=== PATIENT | male | born 1950 | race Caucasian/White ===

== ENCOUNTER 2017-03-08 03:13 | Inpatient (IN) | payer MEDICARE ==
[~2017-03-08] VITALS: Ht 170.2 cm; Wt 64.4 kg
[2017-03-08 03:35] VITALS: BP 139/65; PULSE 58; RESP 16; TEMP 98.6; O2SAT 100
[2017-03-08 04:54] LABS: AUTOMATED NEUTROPHIL # 3.2 TH/MM3 (1.8-7.7); BASOPHIL % 0.5 % (0.0-2.0); EOSINOPHIL # 0.2 TH/MM3 (0-0.4); EOSINOPHIL % 3.6 % (0.0-4.0); HEMATOCRIT 38.5 % (39.0-51.0); HEMOGLOBIN 13.3 GM/DL (13.0-17.0); LYMPH % 20.4 % (9.0-44.0); MEAN CORPUSCULAR HEMOGLOBIN 31.4 PG (27.0-34.0); MEAN CORPUSCULAR HGB CONC 34.5 % (32.0-36.0); MEAN PLATELET VOLUME 8.4 FL (7.0-11.0); MONO % 9.5 % (0.0-8.0); MONOCYTE # 0.5 TH/MM3 (0-0.9); PLATELET COUNT 149 TH/MM3 (150-450); RED BLOOD COUNT 4.23 MIL/MM3 (4.50-5.90); RED CELL DISTRIBUTION WIDTH 13.2 % (11.6-17.2); WHITE BLOOD COUNT 4.9 TH/MM3 (4.0-11.0)
--- NOTE | 2017-03-08 05:10 | PD ---
HPI Chief Complaint: Altered Mental Status Time Seen by Provider: 03:51 Travel History International Travel<30 days: No Contact w/Intl Traveler<30days: No Traveled to known affect area: No History of Present Illness HPI Is a 66-year-old man with Parkinson's disease and psychosis, eloped from his house for the second time in 24 hours requiring please bring him to the hospital again. He was sedated in route with EMS. Family describes rapid downhill course of progressive worsening psychosis and dementia symptoms. Was seen at the ER last night in [place]. No evidence of trauma. Family declined admission at that point. Patient had worsening delusions and hallucinations. History Past Medical History Narrative Medical Parkinson's disease with psychosis Tetanus Vaccination: < 5 Years Influenza Vaccination: Yes Social History Alcohol Use: Yes Tobacco Use: Yes Review of Systems Except as stated in HPI: all other systems reviewed are Neg Physical Exam Narrative GENERAL: 66-year-old man, sedated SKIN: Focused skin assessment warm/dry. HEAD: Atraumatic. Normocephalic. EYES: Pupils equal and round. No scleral icterus. No injection or drainage. ENT: No nasal bleeding or discharge. Mucous membranes pink and moist. NECK: Trachea midline. No JVD. CARDIOVASCULAR: Regular rate and rhythm. No murmur appreciated. RESPIRATORY: No accessory muscle use. Clear to auscultation. Breath sounds equal bilaterally. GASTROINTESTINAL: Abdomen soft, non-tender, nondistended. Hepatic and splenic margins not palpable. MUSCULOSKELETAL: No obvious deformities. No clubbing. No cyanosis. No edema. NEUROLOGICAL: Sedated, minimal response to stimulus. PSYCHIATRIC: Unable to assess. Data Data Last Documented VS Vital Signs Date Time Temp Pulse Resp B/P (MAP) Pulse Ox O2 Delivery O2 Flow Rate FiO2 03/08/17 03:35 98.6 58 16 139/65 (89) 100 Room Air Orders Orders Complete Blood Count With Diff (03/08/17 04:25) Comprehensive Metabolic Panel (03/08/17 04:25) Psych Screen (03/08/17 04:25) Drug Screen, Random Urine (03/08/17 04:25) Labs Laboratory Tests Test 03/08/17 04:30 White Blood Count 4.9 TH/MM3 Red Blood Count 4.23 MIL/MM3 Hemoglobin 13.3 GM/DL Hematocrit 38.5 % Mean Corpuscular Volume 91.0 FL Mean Corpuscular Hemoglobin 31.4 PG Mean Corpuscular Hemoglobin Concent 34.5 % Red Cell Distribution Width 13.2 % Platelet Count 149 TH/MM3 Mean Platelet Volume 8.4 FL Neutrophils (%) (Auto) 66.0 % Lymphocytes (%) (Auto) 20.4 % Monocytes (%) (Auto) 9.5 % Eosinophils (%) (Auto) 3.6 % Basophils (%) (Auto) 0.5 % Neutrophils # (Auto) 3.2 TH/MM3 Lymphocytes # (Auto) 1.0 TH/MM3 Monocytes # (Auto) 0.5 TH/MM3 Eosinophils # (Auto) 0.2 TH/MM3 Basophils # (Auto) 0.0 TH/MM3 CBC Comment DIFF FINAL Differential Comment MDM Medical Decision Making Medical Screen Exam Complete: Yes Emergency Medical Condition: Yes Medical Record Reviewed: Yes Interpretation(s) CBC is unremarkable. Differential Diagnosis Psychosis, delirium, adverse effect to medication, other Narrative Course Medical decision making INITIAL: This a 66-year-old man, brought in by family with psychotic symptoms related to Parkinson's disease. Second episode of psychotic symptoms involving police evaluation for aggressive threatening behavior, confusion, and is house. Including CT head, x-rays of the shoulders, labs are all unremarkable. Patient would likely benefit from evaluation in med psych for behavior control. He is only on medications for his Parkinson's disease right now. Medication titration difficult due to medication effects and drug interactions. Patient may need placement in a locked facility. Diagnosis Primary Impression: Psychosis due to Parkinson's disease Asher Stanley MD Mar 08, 2017 05:10
[2017-03-08 05:17] LABS: ALKALINE PHOSPHATASE 69 U/L (45-117); TOTAL BILIRUBIN ADULT 0.7 MG/DL (0.2-1.0); TOTAL PROTEIN 6.8 GM/DL (6.4-8.2)
[2017-03-08 05:19] LABS: ALT (GPT) 13 U/L (12-78); AST (GOT) 23 U/L (15-37); BICARBONATE 27.7 MEQ/L (21.0-32.0); BLOOD UREA NITROGEN 19 MG/DL (7-18); CALCIUM 8.8 MG/DL (8.5-10.1); CHLORIDE 109 MEQ/L (98-107); CREATININE 0.89 MG/DL (0.60-1.30); GLOMERULAR FILTRATION RATE 85 ML/MIN (>89); GLUCOSE,RANDOM 90 MG/DL (74-106); SODIUM (NA) 142 MEQ/L (136-145)
[2017-03-08] MEDS ORDERED: CARBIDOPA/LEVODOPA 25 MG/100 MG TAB PO SCH ×3 (07:15→18:00)
--- NOTE | 2017-03-08 12:07 | HHI.HP ---
Provisional Diagnosis Admission Date [place] I. 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 Express and informed consent means consent voluntarily given in writing, by a competent person, after sufficient explanation and disclosure of the subject matter involved to enable the person to make a knowing and willful decision without any element of force, fraud, deceit, duress, or other form of constraint or coercion. This person is 18 years of age or older, is not now known to be incompetent to consent to treatment with a guardian advocate, and does not have a health care surrogate or proxy currently making medical treatment decisions. I have found this person to be one of the following: [] Competent to provide express and informed consent, as defined above, for voluntary admission to this facility and is competent to provide express and informed consent for treatment. He/she has the consistent capacity to make well reasoned, willful, and knowing decisions concerning his or her medical or mental health treatment. The person fully and consistently understands the purpose of the admission for examination/placement and is fully capable of personally exercising all rights assured under [place] Incompetent to provide express and informed consent to voluntary admission , and this is incompetent to provide express and informed consent to treatment. The person must be transferred to involuntary status and a petition for a guardian advocate filed with the Circuit Court. [] Refusing to provide express and informed consent to voluntary admission but is competent to provide express and informed consent for treatment. The person must be discharged or transferred to involuntary status. Form shall be completed within 24 hours of a person's arrival at the receiving facility and filed in the clinical record of each person: 1. Admitted on a voluntary basis 2. Permitted to provide express and informed consent to his/her own treatment 3. Allowed to transfer from involuntary to voluntary status 4. Prior to permitting a person to consent to his or her own treatment after having been previously found incompetent to consent to treatment. History of Present Illness Capacity: Lacks Capacity HPI Patient is a 66-year-old white male initially brought to [facility] history of increased [id number] behaviors anger and irritability aggressiveness towards his . It appears his meds are per the police the hospital twice and sent home now he has been [place] acted. Patient seen screened in the facility then transported here under the [place] act. Patient has a history of Parkinson's disease that is progressed fairly severely. While there is also increased psychotic features with this irritability decreased in his short-term memory or recognition wandering and getting lost. For recently getting more aggressive with his also. Patient seen in either pod with his and neighbor along with RN Robel. Patient sedated due to his receiving when necessary of Ativan in the ambulance on the way over here. is concerned about any interactions with various drugs relating to treat the parkinsonism and also then retracted into behaviors including nuplazid. I states there is no previous history of mental illness, no history of alcohol related issues or drug related issues. 3 adult children. Patient works for [employer] in the past. She denies any past physical or sexual abuse. At this time the patient does meet criteria for acute inpatient psychiatric hospitalization under the [place] act I'll do first opinion request second opinion I feel he does not have capacity make appropriate decisions thus I'll ask for healthcare surrogate and guardian advocate. Will also have neurology consult with us as well as hospitalist. I for Abby to be determined with the CODE STATUS will be on this gentleman lives states that he may also have some issues with sleep apnea. Patient initially was sleeping when the discussion occurred with his . Patient was arousable to drowsy did recognize with some encouragement his he knew he was in the hospital but he thought it was [place]. Renewed tomorrow was crispness and was 2017 Review of Systems ROS Limitations: Altered Mental Status Constitutional: DENIES: Diaphoretic episodes, Fatigue, Fever, Weight gain, Weight loss, Chills, Dizziness, Change in appetite, Night Sweats Endocrine: DENIES: Heat/cold intolerance, Polydipsia, Polyuria, Polyphagia Eyes: DENIES: Blurred vision, Diplopia, Eye inflammation, Eye pain, Vision loss , Photosensitivity, Double Vision Ears, nose, mouth, throat: DENIES: Tinnitus, Hearing loss, Vertigo, Nasal discharge, Oral lesions, Throat pain, Hoarseness, Ear Pain, Running Nose, Epistaxis, Sinus Pain, Toothache, Odynophagia Respiratory: DENIES: Apneas, Cough, Snoring, Wheezing, Hemoptysis, Sputum production, Shortness of breath Cardiovascular: DENIES: Chest pain, Palpitations, Syncope, Dyspnea on Exertion , PND, Lower Extremity Edema, Orthopnea, Claudication Gastrointestinal: DENIES: Abdominal pain, Black stools, Bloody stools, Constipation, Diarrhea, Nausea, Vomiting, Difficulty Swallowing, Anorexia Genitourinary: DENIES: Sexual dysfunction, Urinary frequency, Urinary incontinence, Urgency, Hematuria, Dysuria, Nocturia, Penile Discharge, Testicular Pain, Testicular Swelling Musculoskeletal: DENIES: Joint pain, Muscle aches, Stiffness, Joint Swelling, Back pain, Neck pain Integumentary: DENIES: Abnormal pigmentation, Nail changes, Pruritus, Rash Hematologic/lymphatic: DENIES: Bruising, Lymphadenopathy Immunologic/allergic: DENIES: Eczema, Urticaria Neurologic: COMPLAINS OF: Abnormal gait, DENIES: Headache, Localized weakness, Paresthesias, Seizures, Speech Problems, Tremor, Poor Balance Psychiatric: COMPLAINS OF: Confusion, Mood changes, Hallucinations, Agitation Past Psych History Psychological trauma history No history of abuse Violence risk - others (6 mos) Patient becoming more and more violent with at home Violence risk - self (6 mos) Denies Substance Abuse History Drugs/Alcohol past 12 months None known Past Family Social History Coded Allergies: clonazepam (Verified Allergy, Intermediate, 03/08/17) codeine (Verified Allergy, Intermediate, 03/08/17) eszopiclone (Verified Allergy, Intermediate, 03/08/17) quetiapine (Verified Allergy, Intermediate, 03/08/17) Current Medications Medications (Trade) Dose Ordered Sig/Marta Route Start Time Stop Time Status Last Admin (Sinemet 25-100 Mg) 1 tab Q8H PO 03/08/17 11:00 03/08/17 10:51 Family Psych History There is some history of mental health issues and family origin Social History Patient lives with his Patient's Strengths (min. 2) Patient verbal intellect is health care has supportive family Physical Exam Patient medically cleared through ED at this time patient dozing on his cot on 8 pod Vital Signs Vital Signs Date Time Temp Pulse Resp B/P (MAP) Pulse Ox O2 Delivery O2 Flow Rate FiO2 03/08/17 07:20 53 16 99 Room Air 03/08/17 03:35 98.6 139/65 (89) Lab Results Test 03/08/17 04:30 03/08/17 07:14 White Blood Count 4.9 TH/MM3 Red Blood Count 4.23 MIL/MM3 Hemoglobin 13.3 GM/DL Hematocrit 38.5 % Mean Corpuscular Volume 91.0 FL Mean Corpuscular Hemoglobin 31.4 PG Mean Corpuscular Hemoglobin Concent 34.5 % Red Cell Distribution Width 13.2 % Platelet Count 149 TH/MM3 Mean Platelet Volume 8.4 FL Neutrophils (%) (Auto) 66.0 % Lymphocytes (%) (Auto) 20.4 % Monocytes (%) (Auto) 9.5 % Eosinophils (%) (Auto) 3.6 % Basophils (%) (Auto) 0.5 % Neutrophils # (Auto) 3.2 TH/MM3 Lymphocytes # (Auto) 1.0 TH/MM3 Monocytes # (Auto) 0.5 TH/MM3 Eosinophils # (Auto) 0.2 TH/MM3 Basophils # (Auto) 0.0 TH/MM3 CBC Comment DIFF FINAL Differential Comment Blood Urea Nitrogen 19 MG/DL Creatinine 0.89 MG/DL Random Glucose 90 MG/DL Total Protein 6.8 GM/DL Albumin 4.0 GM/DL Calcium Level 8.8 MG/DL Alkaline Phosphatase 69 U/L Aspartate Amino Transf (AST/SGOT) 23 U/L Alanine Aminotransferase (ALT/SGPT) 13 U/L Total Bilirubin 0.7 MG/DL Sodium Level 142 MEQ/L Potassium Level 3.8 MEQ/L Chloride Level 109 MEQ/L Carbon Dioxide Level 27.7 MEQ/L Anion Gap 5 MEQ/L Estimat Glomerular Filtration Rate 85 ML/MIN Urine Opiates Screen NEG Urine Barbiturates Screen NEG Urine Amphetamines Screen NEG Urine Benzodiazepines Screen NEG Urine Cocaine Screen NEG Urine Cannabinoids Screen NEG Mental Status Examination Appearance: Appropriate Consciousness: Asleep (arousable to somewhat confused) Orientation: Person, Place Motor Activity: Abnormal gait, Other (patient in bed) Speech: Hesitant, Slow Language: Adequate Fund of Knowledge: Adequate Attention and Concentration: Easily Distracted Memory: Impaired Mood: Sad, Irritable Affect: Other (decreased range and intensity) Thought Process & Associations: Disorganized Thought Content: Other (disorganized) Hallucination Type: None Delusion Type: Paranoid (mild) Suicidal Ideation: No Suicidal Plan: No Suicidal Intention: No Homicidal Ideation: No Homicidal Plan: No Homicidal Intention: No Insight: Poor Judgment: Poor Assessment & Plan Problem List: (1) Dementia due to Parkinson's disease with behavioral disturbance ICD Codes: G20 - Parkinson's disease; F02.81 - Dementia in other diseases classified elsewhere with behavioral disturbance Assessment & Plan Estimated LOS: days this time patient meets criteria for involuntary psychiatric consultation the [place] act I'll do first opinion request second opinion. I feel he does not have capacity at this time also ask for help who surrogate and guardian advocate. Patient's is willing to be health care surrogate. Will continue medications per med reconciliation Discharge Planning This patient be determined with input from patient's and children and observing patient's response to treatment Request HC Surrog/Guard Advoc?: Yes Morro Mauro MD Mar 08, 2017 12:07
[2017-03-08] MEDS ORDERED: LIPI20TA PO (12:12)
[2017-03-08] MEDS ORDERED: ASPI-516 CHEW (12:14)
[2017-03-08] MEDS ORDERED: THER50TA3 (12:14)
[2017-03-08] MEDS ORDERED: SINE25TA PO (12:14)
[2017-03-08] MEDS ORDERED: [UNRECOGNIZED DRUG - CODE] PO (12:14)
[2017-03-08 13:56] VITALS: BP 118/55; PULSE 58; RESP 16; TEMP 97.5; O2SAT 96
--- NOTE | 2017-03-08 15:00 | PD.CONS ---
[facility] Requested By DR HERR Reason for Consult MEDICAL MANAGEMENT Primary Care Physician Unknown Diagnoses: (1) Parkinson's disease (2) CAD (coronary artery disease) (3) Hyperlipidemia (4) Dementia due to Parkinson's disease with behavioral disturbance (5) Psychosis due to Parkinson's disease History of Present Illness Patient is a 66-year-old gentleman transferred from [facility] for psychiatric evaluation. We have been asked to consult regarding medical management. Patient is known to have a history of Parkinson's disease. That has progressed quickly. With features of dementia and and aggressive behavior. Also has a history of coronary artery disease with history of a coronary artery bypass graft one vessel for the LAD/ maker vessel. Patient also has hyperlipidemia. We've been asked to help regarding medical management and any other issues that arise. Review of Systems Constitutional: DENIES: Diaphoretic episodes, Fatigue, Fever, Weight gain, Weight loss, Chills Endocrine: DENIES: Heat/cold intolerance, Polydipsia, Polyuria Eyes: DENIES: Blurred vision, Diplopia, Eye inflammation, Eye pain, Vision loss Ears, nose, mouth, throat: DENIES: Tinnitus, Hearing loss, Vertigo, Nasal discharge, Oral lesions Respiratory: DENIES: Apneas, Cough, Snoring, Wheezing Cardiovascular: DENIES: Chest pain, Palpitations, Syncope, Dyspnea on Exertion Gastrointestinal: DENIES: Abdominal pain, Black stools, Bloody stools Genitourinary: DENIES: Sexual dysfunction, Urinary frequency Musculoskeletal: DENIES: Joint pain, Muscle aches, Stiffness Integumentary: DENIES: Abnormal pigmentation, Nail changes Hematologic/lymphatic: DENIES: Bruising, Lymphadenopathy Immunologic/allergic: DENIES: Eczema, Urticaria Neurologic: COMPLAINS OF: Abnormal gait, DENIES: Headache, Localized weakness, Paresthesias, Seizures, Speech Problems Psychiatric: COMPLAINS OF: Anxiety, Confusion, Mood changes, Agitation Except as stated in HPI: all other systems reviewed are Neg Past Family Social History Allergies: Coded Allergies: clonazepam (Verified Allergy, Intermediate, 03/08/17) codeine (Verified Allergy, Intermediate, 03/08/17) eszopiclone (Verified Allergy, Intermediate, 03/08/17) quetiapine (Verified Allergy, Intermediate, 03/08/17) Past Medical History Parkinson's disease Coronary artery disease Hyperlipidemia Dementia Past Surgical History Coronary artery bypass graft one vessel of the " maker vessel Coronary artery disease Tonsillectomy Left knee arthroscopic surgery Reported Medications Reported Meds & Active Scripts Active Reported Aspirin 81 Mg Chew 81 Mg CHEW DAILY Theragran-M Premier 50+ Caplet (Mv-Mn/FA/Coq10/Lycopene/Lutein) 400 Mcg-250 Mcg- 375 Mcg-250 Mcg Tablet Sinemet (Carbidopa-Levodopa) 25-100 Mg Tab 1 Tab PO Q6HR Nuplazid (Pimavanserin) 17 Mg Tab 34 Mg PO DAILY Lipitor (Atorvastatin Calcium) 20 Mg Tab 20 Mg PO HS Active Ordered Medications Current Medications Carbidopa/Levodopa (Sinemet 25-100 Mg) 1 tab Q8HR PO Last administered on 03/08 07:20; Start 03/08/17 at 07:15; Stop 03/08/17 at 10:29; Status DC Carbidopa/Levodopa (Sinemet 25-100 Mg) 1 tab Q8H PO Last administered on 10:51; Start 03/08/17 at 11:00 Family History Mother in her 70s from a stroke Father at 44 with an [place] Social History Denies any tobacco or alcohol or illicits had previously had some social alcohol only Physical Exam Vital Signs Vital Signs Date Time Temp Pulse Resp B/P (MAP) Pulse Ox O2 Delivery O2 Flow Rate FiO2 03/08/17 13:56 97.5 58 16 118/55 (76) 96 03/08/17 13:13 03/08/17 07:20 53 16 99 Room Air 03/08/17 03:35 98.6 58 16 139/65 (89) 100 Room Air Physical Exam GENERAL: This is a well-nourished, well-developed patient, in no apparent distress. SKIN: No rashes, ecchymoses or lesions. Cool and dry. HEAD: Atraumatic. Normocephalic. No temporal or scalp tenderness. EYES: Pupils equal round and reactive. Extraocular motions intact. No scleral icterus. No injection or drainage. ENT: Nose without bleeding, purulent drainage or septal hematoma. Throat without erythema, tonsillar hypertrophy or exudate. Uvula midline. Airway patent. Tongue is midline NECK: Trachea midline. No JVD or lymphadenopathy. Supple, nontender, no meningeal signs. CARDIOVASCULAR: Regular rate and rhythm without murmurs, gallops, or rubs. RESPIRATORY: Clear to auscultation. Breath sounds equal bilaterally. No wheezes , rales, or rhonchi. GASTROINTESTINAL: Abdomen soft, non-tender, nondistended. No hepato-splenomegaly , or palpable masses. No guarding. MUSCULOSKELETAL: Extremities without clubbing, cyanosis, or edema. No joint tenderness, effusion, or edema noted. No calf tenderness. Negative Homans sign bilaterally. NEUROLOGICAL: Awake and alert. Cranial nerves II through XII intact. Motor and sensory grossly within normal limits. Five out of 5 muscle strength in all muscle groups. Normal speech. InSight and judgment is limited Mood and behavior somewhat inappropriate Laboratory Laboratory Tests Test 03/08/17 04:30 03/08/17 07:14 White Blood Count 4.9 Red Blood Count 4.23 Hemoglobin 13.3 Hematocrit 38.5 Mean Corpuscular Volume 91.0 Mean Corpuscular Hemoglobin 31.4 Mean Corpuscular Hemoglobin Concent 34.5 Red Cell Distribution Width 13.2 Platelet Count 149 Mean Platelet Volume 8.4 Neutrophils (%) (Auto) 66.0 Lymphocytes (%) (Auto) 20.4 Monocytes (%) (Auto) 9.5 Eosinophils (%) (Auto) 3.6 Basophils (%) (Auto) 0.5 Neutrophils # (Auto) 3.2 Lymphocytes # (Auto) 1.0 Monocytes # (Auto) 0.5 Eosinophils # (Auto) 0.2 Basophils # (Auto) 0.0 CBC Comment DIFF FINAL Differential Comment Blood Urea Nitrogen 19 Creatinine 0.89 Random Glucose 90 Total Protein 6.8 Albumin 4.0 Calcium Level 8.8 Alkaline Phosphatase 69 Aspartate Amino Transf (AST/SGOT) 23 Alanine Aminotransferase (ALT/SGPT) 13 Total Bilirubin 0.7 Sodium Level 142 Potassium Level 3.8 Chloride Level 109 Carbon Dioxide Level 27.7 Anion Gap 5 Estimat Glomerular Filtration Rate 85 Urine Opiates Screen NEG Urine Barbiturates Screen NEG Urine Amphetamines Screen NEG Urine Benzodiazepines Screen NEG Urine Cocaine Screen NEG Urine Cannabinoids Screen NEG Result Diagram: 03/08/1742903/08/17429 Assessment and Plan Problem List: (1) Psychosis due to Parkinson's disease ICD Code: G20 - Parkinson's disease Status: Acute (2) Dementia due to Parkinson's disease with behavioral disturbance ICD Code: G20 - Parkinson's disease; F02.81 - Dementia in other diseases classified elsewhere with behavioral disturbance (3) CAD (coronary artery disease) ICD Code: I25.10 - Atherosclerotic heart disease of [place] coronary artery without angina pectoris (4) Hyperlipidemia ICD Code: E78.5 - Hyperlipidemia, unspecified (5) Parkinson's disease ICD Code: G20 - Parkinson's disease Assessment and Plan Psychosis due to Parkinson's disease and dementia. We'll defer to psychiatry Parkinson's disease resume home Sinemet. Psychiatry has consulted neurology Coronary artery disease with history of coronary artery bypass graft one vessel of the maker vessel Hyperlipidemia on Lipitor 20 mg History of tonsillectomy History of left knee arthroscopic surgery We'll get lab studies TSH free T4 hemoglobin A1c mag and phosphorus Code Status Full code Discussed Condition With Discussed with RN and patient Peña Alvarez DO Mar 08, 2017 15:00
[2017-03-08] MEDS ORDERED: hydrOXYzine HCL 50 MG TAB PO PRN (17:15)
[2017-03-08 17:26] VITALS: BP 125/69; PULSE 69; RESP 18; TEMP 97.4; O2SAT 96
[2017-03-08 18:49] LABS: FREE T4 1.26 NG/DL (0.76-1.46)
[2017-03-08 18:54] LABS: MAGNESIUM 2.1 MG/DL (1.5-2.5); PHOSPHORUS 2.9 MG/DL (2.5-4.9)
[2017-03-08] MEDS: CARBIDOPA/LEVODOPA 25 MG/100 MG TAB PO SCH (19:20)
[2017-03-09 06:17] VITALS: BP 125/73; PULSE 64; RESP 20; TEMP 98; O2SAT 98
[2017-03-09] MEDS: CARBIDOPA/LEVODOPA 25 MG/100 MG TAB PO SCH ×4 (07:07→18:51)
[2017-03-09 07:52] LABS: BILIRUBIN, URINE NEG (NEG); BLOOD, URINE NEG (NEG); GLUCOSE,URINE NEG (NEG); KETONE, URINE NEG (NEG); MUCUS URINE FEW /lpf (OCC); NITRITE,URINE NEG (NEG); URINE COLOR YELLOW (YELLW/STRAW); URINE LEUKOCYTE ESTERASE NEG (NEG)
[2017-03-09] MEDS ORDERED: LORazepam 2 MG/ML VIAL IM PRN (10:00)
[2017-03-09] MEDS ORDERED: LORazepam 1 MG TAB PO PRN (10:00)
[2017-03-09] MEDS: ASPIRIN 81 MG CHEW TAB CHEW SCH (11:04)
--- NOTE | 2017-03-09 11:06 | PD.CONS ---
History of Present Illness Service Neurology Consult Requested By psych Reason for Consult pd Primary Care Physician Unknown History of Present Illness 66-year-old m admitted to psych [facility] tx'd from [facility]. apparently, eloped from his home and has had progressive deterioration in his pd over the past few weeks. [facility] and is followed by a neurologist in [place] for parkinson' s which was dx'd 8-9 years ago. was recently tried on nuplazid for psychosis. he thinks it may have made it worse. he admits to visual hallucinations, delusions. sleep: +dream enactment behavior with violent vivid dreams suggestive of rem sleep behavior disorder currently, he asks if he can go home. aware of where he is. denies wright/cp/focal weakness. Review of Systems as above and admit hp Past Family Social History Allergies: Coded Allergies: clonazepam (Verified Allergy, Intermediate, 03/08/17) codeine (Verified Allergy, Intermediate, 03/08/17) eszopiclone (Verified Allergy, Intermediate, 03/08/17) quetiapine (Verified Allergy, Intermediate, 03/08/17)] Past Medical History Parkinson's disease Coronary artery disease Hyperlipidemia Past Surgical History Coronary artery bypass graft one vessel of the " maker vessel Coronary artery disease Tonsillectomy Left knee arthroscopic surgery Reported Medications Reported Meds & Active Scripts Active Reported Aspirin 81 Mg Chew 81 Mg CHEW DAILY Theragran-M Premier 50+ Caplet (Mv-Mn/FA/Coq10/Lycopene/Lutein) 400 Mcg-250 Mcg- 375 Mcg-250 Mcg Tablet Sinemet (Carbidopa-Levodopa) 25-100 Mg Tab 1 Tab PO Q6HR Nuplazid (Pimavanserin) 17 Mg Tab 34 Mg PO DAILY Lipitor (Atorvastatin Calcium) 20 Mg Tab 20 Mg PO HS Active Ordered Medications Current Medications Carbidopa/Levodopa (Sinemet 25-100 Mg) 1 tab Q8HR PO Last administered on 03/08 07:20; Start 03/08/17 at 07:15; Stop 03/08/17 at 10:29; Status DC Carbidopa/Levodopa (Sinemet 25-100 Mg) 1 tab Q8H PO Last administered on 10:51; Start 03/08/17 at 11:00 Family History m-stroke f-mi Social History Denies any tobacco or alcohol or illicits , lives with Review of Systems All other ROS: ROS reviewed as documented in chart Past Family Social History Allergies: Coded Allergies: clonazepam (Verified Allergy, Intermediate, 03/08/17) codeine (Verified Allergy, Intermediate, 03/08/17) eszopiclone (Verified Allergy, Intermediate, 03/08/17) quetiapine (Verified Allergy, Intermediate, 03/08/17) Active Ordered Medications Current Medications Medications (Trade) Dose Ordered Sig/Marta Route Start Time Stop Time Status Last Admin (Atarax) 50 mg Q6H PRN PO 03/08/17 17:15 03/08/17 22:30 (Sinemet 25-100 Mg) 1 tab DAILY@0700,1100 PO 03/09/17 07:00 03/09/17 07:07 (Sinemet 25-100 Mg) 1 tab DAILY@1500,1900 PO 03/08/17 19:00 03/08/17 19:20 (Aspirin Chew) 81 mg DAILY CHEW 03/09/17 10:00 (Lipitor) 20 mg HS PO 03/09/17 21:00 (Sinemet 25-100 Mg) 1 tab QID PO 03/09/17 13:00 (Ativan) 1 mg Q6H PRN PO 03/09/17 10:00 (Ativan Inj) 1 mg Q6H PRN IM 03/09/17 10:00 Exam I&O / VS 03/09/17 03/09/17 03/10/17 15:00 23:00 07:00 Intake Total 360 ml Balance 360 ml Intake Oral 360 ml Vital Signs Date Time Temp Pulse Resp B/P (MAP) Pulse Ox O2 Delivery O2 Flow Rate FiO2 03/09/17 06:17 98.0 64 20 125/73 (90) 98 03/08/17 17:26 97.4 69 18 125/69 (87) 96 03/08/17 13:56 97.5 58 16 118/55 (76) 96 03/08/17 13:13 General: Alert and Oriented, No acute distress Eye: EOMI Respiratory: Non-labored respirations Cardiology: Normal rate Musculoskeletal: ROM Neurologic: Alert, Oriented, Normal sensory, CN II-XII intact, Gag reflex normal, Normal DTR's Psychiatric: Cooperative, Appropriate mood & affect, Normal judgement, Non- suicidal Exam Comments alert, ox 2, articulate, sitting up in bed. follows, calm, pleasant, not hallucinating, eomi, face sym, facial hypomimia, dysphonic speech, no tremors, minimal ue rgidity, woo to gravity, gait not assessed 2/2 fall risk. Review/Management Diagnosis/Plan: (1) Lewy body dementia with behavioral disturbance ICD Codes: G31.83 - Dementia with Lewy bodies; F02.81 - Dementia in other diseases classified elsewhere with behavioral disturbance Status: Acute Plan: may have lewy body dementia vs PDD pd appears to be well controlled on current regimen. has insight into his hallucinations. very calm this am. could consider low dose seroquel, however risk of worsening lewy body dementia/ pd. clozaril another choice but would require intense weekly monitoring of cbc will follow no driving (2) Psychosis due to Parkinson's disease ICD Codes: G20 - Parkinson's disease Status: Acute (3) Dementia due to Parkinson's disease with behavioral disturbance ICD Codes: G20 - Parkinson's disease; F02.81 - Dementia in other diseases classified elsewhere with behavioral disturbance Status: Acute (4) REM sleep behavior disorder ICD Codes: G47.52 - REM sleep behavior disorder Status: Chronic (5) Parkinson's disease ICD Codes: G20 - Parkinson's disease Status: Chronic Junior Salas MD Mar 09, 2017 11:06
--- NOTE | 2017-03-09 11:13 | HHI.PYPN ---
Subjective Remarks Patient very anxious and wants to go home. Apparently is unable to care for him. Patient showing signs of Parkinson's dementia. Does not have sufficient treatment for anxiety and this physician started when necessary Ativan. Labs reviewed. Review of Systems ROS Limitations: Clinical Condition Psychiatric: COMPLAINS OF: Anxiety, Confusion Except as stated in HPI: all other systems reviewed are Neg Mental Status Examination Appearance: Appropriate Consciousness: Asleep (arousable to somewhat confused) Orientation: Person, Place Motor Activity: Abnormal gait, Other (patient in bed) Speech: Hesitant, Slow Language: Adequate Fund of Knowledge: Adequate Attention and Concentration: Easily Distracted Memory: Impaired Mood: Sad, Irritable Affect: Other (decreased range and intensity) Thought Process & Associations: Disorganized Thought Content: Other (disorganized) Hallucination Type: None Delusion Type: Paranoid (mild) Suicidal Ideation: No Suicidal Plan: No Suicidal Intention: No Homicidal Ideation: No Homicidal Plan: No Homicidal Intention: No Insight: Poor Judgment: Poor Results Labs Test 03/09/17 00:00 Urine Color YELLOW Urine Turbidity CLEAR Urine pH 6.0 Urine Specific [place] 1.022 Urine Protein NEG mg/dL Urine Glucose (UA) NEG mg/dL Urine Ketones NEG mg/dL Urine Occult Blood NEG Urine Nitrite NEG Urine Bilirubin NEG Urine Urobilinogen 2.0 MG/DL Urine Leukocyte Esterase NEG Urine RBC 2 /hpf Urine WBC LESS THAN 1 /hpf Urine Mucus FEW /lpf Microscopic Urinalysis Comment CULT NOT INDICATED Vitals/IOs Vital Signs Date Time Temp Pulse Resp B/P (MAP) Pulse Ox O2 Delivery O2 Flow Rate FiO2 03/09/17 06:17 98.0 64 20 125/73 (90) 98 03/08/17 07:20 Room Air Intake and Output 03/09/17 03/09/17 03/10/17 08:00 16:00 00:00 Intake Total 840 ml Balance 840 ml Assessment & Plan Problem List: (1) Dementia due to Parkinson's disease with behavioral disturbance ICD Codes: G20 - Parkinson's disease; F02.81 - Dementia in other diseases classified elsewhere with behavioral disturbance Status: Acute Assessment & Plan Estimated LOS: days. Patient continues to demonstrate memory deficits, high anxiety, periods of confusion and reported agitation. He was started on when necessary Ativan by this physician to assess efficacy and tolerability and treatment of anxiety. Labs reviewed. Justification for Cont. Inpt. Patient remains easily confused and agitated with high anxiety. He represents a danger to himself and others. Request HC Surrog/Guard Advoc?: Yes Vu White MD Mar 09, 2017 11:13
[2017-03-09 12:14] LABS: HEMOGLOBIN A1C 5.6 % (4.3-6.0)
[2017-03-09] MEDS ORDERED: CARBIDOPA/LEVODOPA 25 MG/100 MG TAB PO SCH (13:00)
[2017-03-09] MEDS ORDERED: CALCIUM CARBONATE 500 MG CHEWABLE TAB PO PRN (15:00)
[2017-03-09 18:00] VITALS: BP 128/74; PULSE 66; RESP 17; TEMP 97.8; O2SAT 98
[2017-03-09] MEDS: ATORVASTATIN 20 MG TAB PO SCH (20:51)
[2017-03-10 06:25] VITALS: BP 88/61; PULSE 64; RESP 16; TEMP 98.1; O2SAT 98
--- NOTE | 2017-03-10 08:40 | HHI.PR ---
Subjective Remarks delayed note from 03/09 pt seen and examioned c/o heart nurn he usually use prilosec 20 mg bid prn Objective Vitals Vital Signs Date Time Temp Pulse Resp B/P (MAP) Pulse Ox O2 Delivery O2 Flow Rate FiO2 03/10/17 06:25 98.1 64 16 88/61 (70) 98 03/09/17 18:00 97.8 66 17 128/74 (92) 98 I/O 03/09/17 03/09/17 03/09/17 03/10/17 03/10/17 03/10/17 07:00 15:00 23:00 07:00 15:00 23:00 Intake Total 480 ml 1200 ml 480 ml 120 ml 240 ml Balance 480 ml 1200 ml 480 ml 120 ml 240 ml Intake Oral 480 ml 1200 ml 480 ml 120 ml 240 ml # Voids 2 3 2 3 Result Diagram: 03/08/17 04303/08/17 0430 Objective Remarks GENERAL: This is a well-nourished, well-developed patient, in no apparent distress. CARDIOVASCULAR: Regular rate and rhythm without murmurs, gallops, or rubs. RESPIRATORY: Clear to auscultation. Breath sounds equal bilaterally. No wheezes , rales, or rhonchi. GASTROINTESTINAL: Abdomen soft, non-tender, nondistended. Normal active bowel sounds MUSCULOSKELETAL: Extremities without clubbing, cyanosis, or edema. NEURO: Alert & Oriented x4 to person, place, time, situation. Moves all ext x4 A/P Problem List: (1) Psychosis due to Parkinson's disease ICD Code: G20 - Parkinson's disease Status: Acute (2) Dementia due to Parkinson's disease with behavioral disturbance ICD Code: G20 - Parkinson's disease; F02.81 - Dementia in other diseases classified elsewhere with behavioral disturbance Status: Acute (3) CAD (coronary artery disease) ICD Code: I25.10 - Atherosclerotic heart disease of [place] coronary artery without angina pectoris (4) Hyperlipidemia ICD Code: E78.5 - Hyperlipidemia, unspecified (5) Parkinson's disease ICD Code: G20 - Parkinson's disease Status: Chronic Assessment and Plan Psychosis due to Parkinson's disease and dementia. We'll defer to psychiatry Parkinson's disease resume home Sinemet. Psychiatry has consulted neurology Coronary artery disease with history of coronary artery bypass graft one vessel of the maker vessel Hyperlipidemia on Lipitor 20 mg GERD: protonix , thumps , need ff outpt Neena Almanza MD Mar 10, 2017 08:40
[2017-03-10] MEDS: CARBIDOPA/LEVODOPA 25 MG/100 MG TAB PO SCH ×4 (08:58→18:03)
[2017-03-10] MEDS: ASPIRIN 81 MG CHEW TAB CHEW SCH (08:58)
[2017-03-10] MEDS: PANTOPRAZOLE SOD 40 MG DELAYED RELEASE TAB PO SCH (08:58)
--- NOTE | 2017-03-10 09:58 | HHI.PYPN ---
Subjective Remarks Patient seen in [place] with nurse Nick, patient alert fairly well oriented to place time and situation. Did not remember me from our visit 2 days ago. Neurology consult noted and appreciated and agreed with medicine consult noted and agreed with and appreciated. At this time patient is not on his Pneumovax a. He is basically on Sinemet and Ativan as needed. He is calm cooperative and pleasant. It appears to be meeting with his early this afternoon limited to speak with her concerning future care and any future problems they may have it games well Review of Systems Except as stated in HPI: all other systems reviewed are Neg Mental Status Examination Appearance: Appropriate Consciousness: Asleep (arousable to somewhat confused) Orientation: Person, Place Motor Activity: Abnormal gait, Other (patient in bed) Speech: Hesitant, Slow Language: Adequate Fund of Knowledge: Adequate Attention and Concentration: Easily Distracted Memory: Impaired Mood: Sad, Irritable Affect: Other (decreased range and intensity) Thought Process & Associations: Disorganized Thought Content: Other (disorganized) Hallucination Type: None Delusion Type: Paranoid (mild) Suicidal Ideation: No Suicidal Plan: No Suicidal Intention: No Homicidal Ideation: No Homicidal Plan: No Homicidal Intention: No Insight: Poor Judgment: Poor Results Labs Test 03/09/17 12:22 Erythrocyte Sedimentation Rate 1 mm/hr Vitamin B12 Level 552 PG/ML Vitals/IOs Vital Signs Date Time Temp Pulse Resp B/P (MAP) Pulse Ox O2 Delivery O2 Flow Rate FiO2 03/10/17 06:25 98.1 64 16 88/61 (70) 98 03/08/17 07:20 Room Air Intake and Output 03/10/17 03/10/17 03/11/17 08:00 16:00 00:00 Intake Total 360 ml Balance 360 ml Assessment & Plan Problem List: (1) Dementia due to Parkinson's disease with behavioral disturbance ICD Codes: G20 - Parkinson's disease; F02.81 - Dementia in other diseases classified elsewhere with behavioral disturbance Status: Acute Assessment & Plan Estimated LOS: days patient calmer more focused today now denies suicidality homicidality voices or vision. Is coping with the hospitalization. Attempted talk with patient's this afternoon Justification for Cont. Inpt. This time patient may decompensate about placed in an appropriate level of care Discharge Planning To be determined discussed this with patient's Request HC Surrog/Guard Advoc?: Yes Caliendo,Morro E. MD Mar 10, 2017 09:58
--- NOTE | 2017-03-10 13:59 | HHI.PR ---
Subjective Remarks doing well , no heart burn today clear bu medicine to be dc and ff outpt pt understand he need to ff with pcp Objective Vitals Vital Signs Date Time Temp Pulse Resp B/P (MAP) Pulse Ox O2 Delivery O2 Flow Rate FiO2 03/10/17 06:25 98.1 64 16 88/61 (70) 98 03/09/17 18:00 97.8 66 17 128/74 (92) 98 I/O 03/09/17 03/09/17 03/09/17 03/10/17 03/10/17 03/10/17 07:00 15:00 23:00 07:00 15:00 23:00 Intake Total 480 ml 1200 ml 480 ml 120 ml 240 ml Balance 480 ml 1200 ml 480 ml 120 ml 240 ml Intake Oral 480 ml 1200 ml 480 ml 120 ml 240 ml # Voids 2 3 2 3 Result Diagram: 03/08/17 04303/08/17 043 Objective Remarks GENERAL: This is a well-nourished, well-developed patient, in no apparent distress. CARDIOVASCULAR: Regular rate and rhythm without murmurs, gallops, or rubs. RESPIRATORY: Clear to auscultation. Breath sounds equal bilaterally. No wheezes , rales, or rhonchi. GASTROINTESTINAL: Abdomen soft, non-tender, nondistended. Normal active bowel sounds MUSCULOSKELETAL: Extremities without clubbing, cyanosis, or edema. NEURO: Alert & Oriented x4 to person, place, time, situation. Moves all ext x4 A/P Problem List: (1) Psychosis due to Parkinson's disease ICD Code: G20 - Parkinson's disease Status: Acute (2) Dementia due to Parkinson's disease with behavioral disturbance ICD Code: G20 - Parkinson's disease; F02.81 - Dementia in other diseases classified elsewhere with behavioral disturbance Status: Acute (3) CAD (coronary artery disease) ICD Code: I25.10 - Atherosclerotic heart disease of [place] coronary artery without angina pectoris (4) Hyperlipidemia ICD Code: E78.5 - Hyperlipidemia, unspecified (5) Parkinson's disease ICD Code: G20 - Parkinson's disease Status: Chronic Assessment and Plan Psychosis due to Parkinson's disease and dementia. We'll defer to psychiatry Parkinson's disease resume home Sinemet. Psychiatry has consulted neurology Coronary artery disease with history of coronary artery bypass graft one vessel of the maker vessel Hyperlipidemia on Lipitor 20 mg GERD:sx improved , cont protonix , thumps , need ff outpt Neena Almanza MD Mar 10, 2017 13:59
--- NOTE | 2017-03-10 15:17 | PD.TTN ---
Patient Problems 1. Discharge planning 2. Medication compliance 3. Knowledge deficit 4. Lack of coping skills Progress Toward Goals Provider Present: Dr. Luis Mauro Provider Input: 03/10/2017; patient is a new admission and will be assess for medication management and treatment Psychiatric Counselors Present: AUGIE Romero Psych Therapist Input: 03/10/2017; patient will be assess for dc needs; and contact patient's ; per doctor to arrange a family meeting Group Spec/RT/OT/MOHAN Present: Xavier Miranda, OT Group Spec/RT/OT/MOHAN Input: 03/10/17; patient isolates; however he display appropriate and pleasant mood when approach. Documentation Scribe: AUGIE Romero Sandra LMHC Mar 10, 2017 15:17
[2017-03-10 18:34] VITALS: BP 116/69; PULSE 69; RESP 18; TEMP 97.5; O2SAT 99
--- NOTE | 2017-03-10 20:35 | MG ---
cc: RADHA SIMMS MD Lab No: 18-5 Date: 03/10/17 Age: 66 Sex: M Race: [address] Salas. Awake, drowsy, asleep study with photic done. No imaging. Admitted with progressive worsening psychosis, dementia, delusions, hallucinations, history of Alzheimer's, hyperlipidemia and alcohol, tobacco, substance use. Protonix, Lipitor, Aspirin, Sinemet Atarax DESCRIPTION OF RECORD There is some overall slowing of the background noted predominantly at 45 Hz. Noted that he is asleep by the farm equipment service technician, may account for some of slowing. It is bilateral. No epileptic activity. Some mouth movements. Photic stimulation was performed with minimal driving response noted. IMPRESSION Abnormal EEG due to mild to moderate slowing without epileptic activity consistent likely of encephalopathic process of various etiology. No epileptic activity. Radha Simms MD DF/ /7:05 PM /8:13 PM
[2017-03-10] MEDS: ATORVASTATIN 20 MG TAB PO SCH (20:50)
[2017-03-11 06:00] VITALS: BP 102/56; PULSE 72; RESP 20; TEMP 98; O2SAT 96
[2017-03-11 06:01] VITALS: BP 125/75; PULSE 69; RESP 18; TEMP 97.6; O2SAT 98
[2017-03-11] MEDS: CARBIDOPA/LEVODOPA 25 MG/100 MG TAB PO SCH ×2 (07:00→11:22)
--- NOTE | 2017-03-11 07:42 | HHI.PR ---
Review/Management Diagnosis/Plan: (1) Lewy body dementia with behavioral disturbance ICD Codes: G31.83 - Dementia with Lewy bodies; F02.81 - Dementia in other diseases classified elsewhere with behavioral disturbance Status: Acute Plan: may have lewy body dementia vs PDD pd appears to be well controlled on current regimen. has insight into his hallucinations. very calm this am. could consider clozaril another choice but would require intense weekly monitoring of cbc eeg- mild slowing tsh/b12 nml pd stable/mental status appears appropriate will follow no driving (2) Psychosis due to Parkinson's disease ICD Codes: G20 - Parkinson's disease Status: Acute (3) Dementia due to Parkinson's disease with behavioral disturbance ICD Codes: G20 - Parkinson's disease; F02.81 - Dementia in other diseases classified elsewhere with behavioral disturbance Status: Acute (4) REM sleep behavior disorder ICD Codes: G47.52 - REM sleep behavior disorder Status: Chronic (5) Parkinson's disease ICD Codes: G20 - Parkinson's disease Status: Chronic Subjective Subjective Comments No acute events reported No headache No chest pain No dyspnea Active Medications Current Medications Medications (Trade) Dose Ordered Sig/Marta Route Start Time Stop Time Status Last Admin (Atarax) 50 mg Q6H PRN PO 03/08/17 17:15 03/08/17 22:30 (Sinemet 25-100 Mg) 1 tab DAILY@0700,1100 PO 03/09/17 07:00 03/10/17 11:00 (Sinemet 25-100 Mg) 1 tab DAILY@1500,1900 PO 03/08/17 19:00 03/10/17 18:03 (Aspirin Chew) 81 mg DAILY CHEW 03/09/17 10:00 03/10/17 08:58 (Lipitor) 20 mg HS PO 03/09/17 21:00 03/10/17 20:50 (Ativan) 1 mg Q6H PRN PO 03/09/17 10:00 03/10/17 20:51 (Ativan Inj) 1 mg Q6H PRN IM 03/09/17 10:00 (Protonix) 40 mg DAILY PO 03/10/17 09:00 03/10/17 08:58 (Tums Chew) 500 mg Q4H PRN PO 03/09/17 15:00 03/09/17 14:56 Allergies Allergies Coded Allergies clonazepam (Verified Allergy, Intermediate, 03/08/17) codeine (Verified Allergy, Intermediate, 03/08/17) eszopiclone (Verified Allergy, Intermediate, 03/08/17) quetiapine (Verified Allergy, Intermediate, 03/08/17) Review of Systems All other ROS: ROS reviewed as documented in chart Exam I&O / VS Vital Signs Date Time Temp Pulse Resp B/P (MAP) Pulse Ox O2 Delivery O2 Flow Rate FiO2 03/11/17 06:01 97.6 69 18 125/75 (92) 98 03/11/17 06:00 98.0 72 20 102/56 (71) 96 03/10/17 18:34 97.5 69 18 116/69 (85) 99 General: Alert and Oriented, No acute distress Eye: EOMI Respiratory: Non-labored respirations Cardiology: Normal rate Musculoskeletal: ROM Neurologic: Alert, Oriented, CN II-XII intact, Normal DTR's Psychiatric: Cooperative, Appropriate mood & affect, Normal judgement, Non- suicidal Exam Comments alert, ox 3, ambulating in room, calm, pleasant, not hallucinating, eomi, face sym, facial hypomimia, dysphonic speech, no tremors, minimal ue rgidity, woo to gravity, Junior Salas MD Mar 11, 2017 07:42
[2017-03-11] MEDS: PANTOPRAZOLE SOD 40 MG DELAYED RELEASE TAB PO SCH (08:39)
[2017-03-11] MEDS: ASPIRIN 81 MG CHEW TAB CHEW SCH (08:39)
[2017-03-11] MEDS ORDERED: THER50TA3 PO (09:34)
[2017-03-11] MEDS ORDERED: ASPI-516 CHEW (09:34)
[2017-03-11] MEDS ORDERED: SINE25TA PO (09:34)
[2017-03-11] MEDS ORDERED: PANT40TA3 PO (09:34)
[2017-03-11] MEDS ORDERED: LIPI20TA PO (09:34)
--- NOTE | 2017-03-11 09:41 | HHI.DS ---
Psychiatry Discharge Summary Inpatient Psychiatric care?: Yes Advance Directive: No Mental Health AdvanceDirective: No Health Care Proxy: No Admission Admission Date Mar 08, 2017 at 11:39 Admission Diagnosis: (1) Dementia due to Parkinson's disease with behavioral disturbance ICD Code: G20 - Parkinson's disease; F02.81 - Dementia in other diseases classified elsewhere with behavioral disturbance Brief History Patient is a 66-year-old white male initially brought to [facility] history of increased [id number] behaviors anger and irritability aggressiveness towards his . It appears his meds are per the police the hospital twice and sent home now he has been [place] acted. Patient seen screened in the facility then transported here under the [place] act. Patient has a history of Parkinson's disease that is progressed fairly severely. While there is also increased psychotic features with this irritability decreased in his short-term memory or recognition wandering and getting lost. For recently getting more aggressive with his also. Patient seen in either pod with his and neighbor along with ARIADNE Huston. Patient sedated due to his receiving when necessary of Ativan in the ambulance on the way over here. is concerned about any interactions with various drugs relating to treat the parkinsonism and also then retracted into behaviors including nuplazid. I states there is no previous history of mental illness, no history of alcohol related issues or drug related issues. 3 adult children. Patient works for [employer] in the past. She denies any past physical or sexual abuse. At this time the patient does meet criteria for acute inpatient psychiatric hospitalization under the [place] act I'll do first opinion request second opinion I feel he does not have capacity make appropriate decisions thus I'll ask for healthcare surrogate and guardian advocate. Will also have neurology consult with us as well as hospitalist. I for Abby to be determined with the CODE STATUS will be on this gentleman lives states that he may also have some issues with sleep apnea. Patient initially was sleeping when the discussion occurred with his . Patient was arousable to drowsy did recognize with some encouragement his he knew he was in the hospital but he thought it was [place]. Renewed tomorrow was crispness and was 2017 Tobacco Use In Past 30 Days: No Tobacco Past 30 Days Alcohol Use: Monthly or Less Hospital Course Patient's hospital course was uneventful, he show compliance with medication and no behavior problems. Exception nurse confusion about the events leading to the hospitalization. By 10 March patient's memory had cleared significantly he was calm cooperative denying suicidality homicidality voices or visions. His did visit the afternoon she felt things were also doing much better. We felt patient would benefit from another 24 hours observation to observe his consistency in an improvement. Patient seen today continues to do well. Patient's is willing to have him come home today to follow-up with her own neurologist. And also to follow-up with psychiatric services through his insurance panel. Thus patient to be discharged today continue of schedule medications from the hospital except for discontinuation of the nuplazid. Results Blood Pressure 125 / 75 Vital Signs Date Time Temp Pulse Resp B/P (MAP) Pulse Ox O2 Delivery O2 Flow Rate FiO2 03/11/17 06:01 97.6 69 18 125/75 (92) 98 03/08/17 07:20 Room Air Laboratory Tests Test 03/09/17 00:00 03/09/17 12:22 Urine Mucus FEW /lpf (OCC) Laboratory Results Test 03/08/17 04:30 Hemoglobin A1c 5.6 % (4.3-6.0) Summary of Procedures None done Pending results at discharge: No Medications # of Antipsychotic meds at D/C: 0 Approp Antipsych med options 1 - Minimum of three failed multiple trials of monotherapy. 2 - Documented plan to taper to monotherapy due to previous use of multiple meds OR cross-taper in progress at D/C. 3 - Documentation of augmentation of Clozapine. 4 - Justification other than those listed in allowable values 1-3, document here : Discharge Discharge Date: Mar 11, 2017 Discharge Diagnosis: (1) Dementia due to Parkinson's disease with behavioral disturbance Diagnosis: Principal ICD Code: G20 - Parkinson's disease; F02.81 - Dementia in other diseases classified elsewhere with behavioral disturbance Status: Acute Pt Condition on Discharge: Stable Discharge Disposition: Discharge Home Discharge Instructions Diet Instructions: As Tolerated, No Restrictions Activities you can perform: Regular-No Restrictions Scheduled Appointment: follow-up private neurologist, follow-up psychiatrist for clinician through her insurance panel counselor to help arrange Discharge Time > 30 minutes Mental Status Examination Appearance: Appropriate Consciousness: Asleep (arousable to somewhat confused) Orientation: Person, Place Motor Activity: Abnormal gait, Other (patient in bed) Speech: Hesitant, Slow Language: Adequate Fund of Knowledge: Adequate Attention and Concentration: Easily Distracted Memory: Impaired Mood: Sad, Irritable Affect: Other (decreased range and intensity) Thought Process & Associations: Disorganized Thought Content: Other (disorganized) Hallucination Type: None Delusion Type: Paranoid (mild) Suicidal Ideation: No Suicidal Plan: No Suicidal Intention: No Homicidal Ideation: No Homicidal Plan: No Homicidal Intention: No Insight: Poor Judgment: Poor Discharge/Advance Care Plan Health Problems: (1) Dementia due to Parkinson's disease with behavioral disturbance Goals to promote your health * To prevent worsening of your condition and complications * To maintain your health at the optimal level Directions to meet your goals Take your medications as prescribed Follow your dietary instruction Follow activity as directed Keep your appointments as scheduled Take your immunizations and boosters as scheduled If your symptoms worsen call your PCP, if no PCP go to Urgent Care Center or Emergency Room For 06/10 questions related to your inpatient stay or results of tests pending at discharge, please contact Dr. Morro Mauro at Smoking is Dangerous to Your Health. Avoid second hand smoking Morro Mauro MD Mar 11, 2017 09:41
== END 2017-03-11 11:25 | disposition home or self-care (01) | DRG 57 ==
LOC: NEPE 03:13 → NEDA 11:39 → H4EA 13:25
PROVIDERS: ADMIT Psychiatry & Neurology Psychiatry; ATTEND Psychiatry & Neurology Psychiatry
DX: G20 Parkinson's disease (principal); F02.81 Dementia in other diseases classified elsewhere, unspecified severity, with behavioral disturbance; I25.10 Atherosclerotic heart disease of native coronary artery without angina pectoris; E78.5 Hyperlipidemia, unspecified; F41.9 Anxiety disorder, unspecified; G47.52 REM sleep behavior disorder; K21.9 Gastro-esophageal reflux disease without esophagitis; Z72.0 Tobacco use; Z95.1 Presence of aortocoronary bypass graft
CPT/HCPCS: 80053; 80307; 81001; 82607; 83036; 83735; 84100; 84439; 84443; 85025; 85652; 86592; 95819; 99285